=== PATIENT | female | born 1990 | race Caucasian/White ===

== ENCOUNTER → 2024-11-21 11:30 | Outpatient (BNV) | payer OTHER, SELFPAY | PROVIDERS: Visit Provider Psychiatry & Neurology Psychiatry | DX: F33.1 Major depressive disorder, recurrent, moderate (principal); F41.1 Generalized anxiety disorder; F10.90 Alcohol use, unspecified, uncomplicated; F31.81 Bipolar II disorder | CPT/HCPCS: 90792; 99213 ==

== ENCOUNTER 2024-11-30 12:52 | Outpatient (REF) | payer OTHER, SELFPAY ==
[2024-11-30 13:16] LABS: MANUAL DIFF FLAG NO
--- NOTE | 2024-11-30 13:16 | ECG_ITS ---
Test Reason : f39 Blood Pressure : */* mmHG Vent. Rate : 61 BPM Atrial Rate : 61 BPM P-R Int : 128 ms QRS Dur : 106 ms QT Int : 428 ms P-R-T Axes : 16 29 20 degrees QTcB Int : 430 ms Normal sinus rhythm Normal ECG No previous ECGs available Referred By: Brenna Godinez Electronically Signed By: NORM BECKETT
--- OUTSIDE RECORDS SUMMARY | 2024-11-30 13:20 | XMS_ITS | Clinical Summary ---
Author Organization [facility] Address [address] [place] [id number] Phone Care Team Providers Care Cost Manager Name Role Phone Cherelle De La Vega NP Primary Care Provider [phone] Medications Medication-Free Text Ibuprofen Active Social History Tobacco Use Types Packs/Day Years Used Date Smoking Tobacco: Never Assessed Education Answer Date Recorded Are you interested in more education? Not on arie e 06/24/2022 Are you concerned about learning? Not on file 06/24/2022 No 06/24/2022 No 06/24/2022 Digital Access Answer Date Recorded No 07/26/2022 No 07/26/2022 Reliable internet access at home? Not on file 07/26/2022 Device with a working camera? Not on file Comments Unknown Sex and Gender Information Value Date Recorded Sex Assigned at Not on file Legal Sex Female 8:12 PM EST Gender Identity Not on file Sexual Orientation Not on file Last Filed Vital Signs Vital Sign Reading Time Taken Comments Blood Pressure - - Pulse - - Temperature - - Respiratory Rate - - Oxygen Saturation - - Inhaled Oxygen Concentration - - Weight 74.8 kg (165 lb) 03/04/2016 11:39 AM EST Height 170.2 cm (5' 7 ) 03/04/2016 11:39 AM EST Body Mass Index 25.84 03/04/2016 11:39 AM EST Plan of Treatment Health Maintenance Due Date Last Done Comments DEPRESSION SCREENING 2001 SMOKING Hx and SMOKELESS TOBACCO SCREENING 2002 HEPATITIS C SCREENING 2007 HIV ONE-TIME SCREENING (18-6 5 YEARS) 2007 Adult Td,Tdap Booster 03/13/2017 03/13/2007 INFLUENZA VACCINE (#1) 2024 , 12/01/2017, 11/19/2016 COVID-19 VACCINE (2024-2 6 season) 2024 03/20/2020, 02/21/2020 PAP SMEAR 03/01/2026 03/01/2023 MENINGOCOCCAL VACCINES (ACWY) Completed 10/11/2006 HEPATITIS A VACCINES Completed 05/14/2008, 03/13/2007 HIB VACCINES Aged Out No longer eligi ble based on patient's age to complete this topic MENINGOCOCCAL VACCINES (B) Aged Out N o longer eligible based on patient's age to complete this topic PNEUMOCOCCAL VACCINES (0-49 years) Aged Out No longer eligible b ased on patient's age to complete this topic Medical Devices Not on file Procedures Procedure Name Priority Date/Time Associated Diagnosis Comments PAP TEST Routine 03/01/2023 12:00 AM EST from Last 3 Months or Most Recently Relevant to Health Maintenance Results * Pap Test (03/01/2023 12:00 AM EST) 03/01/2023 03/02/2023 9:5 3 AM EST Narrative SEE NARRATIVE - 03/09/2023 1:10 [place] [address] Job Foreman: Izabella Jones MD INFORMATION SECURITY SYSTEMS INSTRUCTOR Cytology Report FINAL DIAGNOSIS A. PAP SMEAR (SUREPATH) CE: SPECIMEN ADEQUACY: Satisfactory for evaluation; transformation zone present. INTERPRETATION: NEGATIVE FOR INTRAEPITHELIAL LESION OR MALIGNANCY. Electronically Signed Out By: RYDER Grove(ASCP) The Pap test is a screening test primarily for squamous cancers and precursors and has associated false-negative and false-positive results. New technologies such as liquid-based preparations may decrease but will not eliminate all false-negative results. Regular sampling and follow-up of unexplained clinical signs and symptoms are recommended to minimize false negative results. PROCEDURES/ADDENDA HPV Testing (Requested) Ordered Date: 03/02/2023 A. PAP SMEAR (SUREPATH) CE: Human Papilloma Virus Test NEGATIVE for high-risk Human Papilloma Virus types 16, 18, 45 and the Other high risk probe set (Includes 31, 33, 35, 39, 51, 52, 56, 58, 59, 66, 68) Note: Testing performed by [employer] [facility] HR-HPV analysis. Clinical correlation is advised. This HPV test was performed at [facility], [address] [place] [address]. This test has been FDA approved for [facility] cervical cytology specimens. The accuracy and precision of this test for all other specimen sources has been verified in the Cytopathology Laboratory of the [facility] and has not been cleared or approved by the U.S. Food and Drug Administration. Clinical correlation is advised. CLINICAL HISTORY Date of Last Menstrual Period: Not Provided Menstrual History: Unknown Other Clinical Conditions: Screening Pap SPECIMEN SOURCE A: PAP SMEAR (SUREPATH) CE Patient Name: KAROLYN LAMBERT. : 1990 (Age: 33) Sex: F Institution: [facility] Location: [facility] Date of Collection: 03/01/2023 Date of Reported: 03/09/2023 13:10 Results to: Cherelle De La Vega NP Cherelle De La Vega NP CYTOLOGY ORDERABLES Final Resul t SEE NARRATIVE from Last 3 Months or Most Recently Relevant to Health Maintenance Insurance [employer] [facility] [employer] FAM[employer] [facility] [employer] [facility] [facility] [employer] [employer] FAMILY Care Teams Cost Manager Relationship Specialty Start Date End Date Cherelle De La Vega NP [address] [place] [address] PCP - General 03/03/17 Additional Source Comments The information contained in this document represents components of the legal health record. It is not the complete legal health record.[facility]
[2024-11-30 14:06] LABS: Hematocrit 40.8 % (37.0-47.0); Hemoglobin 13.8 g/dl (12.0-16.0); Imm Gran Abs Auto 0.02 X10*3/uL (0.00-0.03); Imm Gran Pct Auto 0.3 % (0.0-0.4); Lymphocytes Absolute Auto 2.1 X10*3/uL (1.2-4.9); Mean Corpuscular HGB Conc 33.8 g/dl (31.0-35.0); Mean Corpuscular Hemoglobin 28.2 pg (27.0-33.0); Mean Corpuscular Volume 83.4 fL (80.0-98.0); NRBC Abs Auto 0.000 X10*3/uL (0.0-0.012); NRBC Pct Auto 0.0 /100WBC (0.0-0.2); Platelet Count 311 X10*3/uL (160-400); Red Blood Count 4.89 X10*6/uL (4.20-5.50); White Blood Count 7.5 X10*3/uL (4.8-10.8)
[2024-11-30 14:50] LABS: Alanine Aminotransferase 22 U/L (0-31); Albumin Level 4.7 g/dL (3.5-5.0); Alkaline Phosphatase 56 U/L (39-117); Anion Gap 8 (12-20); Aspartate Amino Transferase 25 U/L (5-31); Blood Urea Nitrogen 9 mg/dL (9-16); Calcium 9.0 mg/dL (8.4-10.2); Carbon Dioxide 24 mmol/L (22-29); Chloride 109 mmol/L (96-108); Estimated Glomerular Filt Rate > 60; Iron 63 mcg/dL (30-160); Magnesium 2.1 mg/dL (1.6-2.6); Percent Iron Saturation 21 % (15-50); Potassium 4.2 mmol/L (3.3-5.1); Sodium 137 mmol/L (135-145); Total Iron Binding Capacity 305 mcg/dL (228-428); Total Protein 7.0 g/dL (6.5-8.0); Unsaturated Iron Binding 242 ug/dL
[2024-11-30 15:01] LABS: Free T4 (Free Thyroxine) 0.93 ng/dL (0.71-1.85); Thyroid Stimulating Hormone 0.90 uIU/mL (0.32-4.0)
[2024-11-30 15:16] LABS: Folate 8.6 ng/mL (> or = 4.0); Vitamin B12 239 pg/mL (200-900)
[2024-11-30 15:52] LABS: CT PCR Urine NOT DETECTED (Not Detect.); NG PCR Urine NOT DETECTED (Not Detect.)
[2024-12-01 03:58] LABS: Syphilis Screen Nonreactive (Nonreactive)
[2024-12-01 04:48] LABS: HBS Num1 > 1000.00 mIU/mL (0-7.99); HBc Num1 0.19 S/CO (0.00-0.79); HBsAGNum1 0.37 S/CO (0.00-0.99); HIV Num 1 0.05 S/CO (0.00-0.99); Hepatitis B Surface Antigen Negative (Negative); ~HepC Num1 0.11 S/CO (0.00-0.79); ~Hepatitis B Surface Antibody REACTIVE (Nonreactive); ~Hepatitis C Antibody Nonreactive (Nonreactive)
== END 2024-11-30 23:59 | disposition home or self-care (01) ==
LOC: HO.CARD 12:52
PROVIDERS: PCP Nurse Practitioner; Visit Provider Psychiatry & Neurology Psychiatry
DX: F39 Unspecified mood [affective] disorder (principal)
CPT/HCPCS: 80053; 82306; 82607; 82746; 83036; 83090; 83540; 83735; 84425; 84439; 84443; 85025; 85652; 86704; 86706; 86780; 86803; 87340; 87389; 87491; 87591; 93005

== ENCOUNTER → 2024-11-30 13:16 | Outpatient (BNV) | payer OTHER, SELFPAY | PROVIDERS: PCP Nurse Practitioner; Visit Provider Internal Medicine | DX: F39 Unspecified mood [affective] disorder (principal) | CPT/HCPCS: 93010 ==